=== PATIENT | female | born 1940 | race Caucasian/White ===

== ENCOUNTER → 2018-11-24 | Outpatient (CLI) | payer OTHER, MEDICARE ==
--- NOTE | 2018-11-24 10:53 | KCIC ---
MRI of the lumbar spine without contrast 11/24/2018 CLINICAL HISTORY: Low back pain which radiates down the right leg since August of this year. TECHNIQUE: Unenhanced T1-weighted and T2-weighted sagittal and axial and inversion recovery sagittal images of the lumbar spine were obtained. FINDINGS: Very mild S-shaped curvature of the thoracolumbar spine is seen. Focal kyphosis of the thoracic spine at T11-12 is seen. Mild anterolisthesis of L4 in relation to L5 is noted. Very mild anterolisthesis of L5 in relation to S1 is seen. Degenerative signal changes are seen involving all of the disks of the lower thoracic and throughout the lumbar spine. Degenerative signal changes are seen within the marrow surrounding these discs. Loss of height of the T11-12, L4-5 and L5-S1 discs is noted. Old appearing compression deformity of the superior endplate of the T12 vertebral body is seen. No acute compression fracture of the lumbar vertebrae is noted. Incidental note is made of perineural cysts within the sacral spinal canal. These measure 5 mm to 1 cm in size. The conus medullaris is normal in morphology, position, and signal characteristics. Rounded high signal intensity lesions are seen involving the posterior aspect of the right lobe of the liver on the T2-weighted images which measure 5 mm and 1.5 cm in size. These likely represent cysts. At the T11-12 disc space there is a mild generalized disc bulge. Degenerative changes are seen involving the facet joints bilaterally. A 6 mm synovial cyst is seen projecting anteriorly from the lateral aspect of the right facet joint. These findings when combined do not result in significant central spinal canal stenosis. Mild right neural foraminal stenosis is seen. The left neural foramen is patent. At the T12-L1, L1-2 and L2-3 disc spaces there are minimal to mild generalized disc bulges. Degenerative changes are seen involving the facet joints bilaterally. There is mild ligamentum flavum hypertrophy bilaterally. These findings do not result in significant central spinal canal or neural foraminal stenosis. At the L3-4 disc space there is a mild generalized disc bulge. Degenerative changes are seen involving the facet joints bilaterally. There is a small left facet joint effusion. A 1.2 cm synovial cyst is seen projecting anteriorly and medially from the right facet joint. Moderate ligamentum flavum hypertrophy is seen bilaterally. There is prominence of the posterior epidural fat. These findings when combined result in mild right-sided central spinal canal stenosis. No neural foraminal stenosis is seen. At the L4-5 disc space there is a mild to moderate generalized disc bulge. Degenerative changes are seen involving the facet joints bilaterally. There is moderate ligamentum flavum hypertrophy bilaterally. There are small facet joint effusions bilaterally. These findings when combined with the anterolisthesis result in mild to moderate central spinal canal stenosis. No neural foraminal stenosis is seen. At the L5-S1 disc space there is a mild generalized disc bulge. Degenerative changes are seen involving the facet joints bilaterally. There is moderate ligamentum flavum hypertrophy bilaterally. There are small facet joint effusions. These findings when combined do not result in significant central spinal canal or neural foraminal stenosis. IMPRESSION: The changes of degenerative disc disease are seen involving the lumbar spine. These findings result in mild right-sided central spinal canal stenosis at L3-4 and mild to moderate central spinal canal stenosis at L4-5. No neural foraminal stenosis is seen. Electronically signed by: Artem Chavira MD (11/24/2018 10:50 AM) [id number]
== END | disposition home or self-care (01) ==
LOC: KCIC MRI 08:59
PROVIDERS: ATTEND Orthopaedic Surgery
DX: M51.16 Intervertebral disc disorders with radiculopathy, lumbar region (principal); M48.061 Spinal stenosis, lumbar region without neurogenic claudication; M71.38 Other bursal cyst, other site
CPT/HCPCS: 72148